=== PATIENT | male | born 1995 | race Caucasian/White ===

== ENCOUNTER 2017-07-12 18:15 | Emergency (ER) | payer OTHER ==
[2017-07-12] MEDS ORDERED: Bupivacaine 0.25% 10 ML VIAL ONE (18:28)
[2017-07-12] MEDS ORDERED: Lidocaine 1% PF 5 ML VIAL ONE (18:28)
[2017-07-12] MEDS ORDERED: Adacel (T-DAP) 0.5 ML VIAL ONE (18:57)
== END 2017-07-12 19:15 | disposition home or self-care (01) ==
LOC: ERS 18:15
DX: S60.450A Superficial foreign body of right index finger, initial encounter (principal); Z23 Encounter for immunization; W45.8XXA Other foreign body or object entering through skin, initial encounter
CPT/HCPCS: 90471; 90715; J2001; S0020